=== PATIENT | male | born 1940 | race Caucasian/White ===

== ENCOUNTER 2019-03-09 16:38 | Inpatient (IN) ==
[2019-03-10] MEDS ORDERED: Ondansetron ODT 4 MG TAB.RAPDIS SL PRN (20:14)
[2019-03-10] MEDS ORDERED: Melatonin 3 MG TABLET PO PRN (20:18)
[2019-03-10] MEDS ORDERED: Mag Hydrox/Al Hydrox/Simeth 30 ML UDC PO PRN (20:18)
[2019-03-10] MEDS: Sennosides/Docusate Sodium TABLET PO SCH (21:54)
[2019-03-11 05:23] LABS: Basophils # 0.1 K/mcL (0.0-0.2); Basophils % 1.3 %; Eosinophils # 0.4 K/mcL (0.0-0.6); Eosinophils % 6.2 %; Hematocrit 44.4 % (37.5-50.1); Hemoglobin 14.5 g/dL (12.9-16.9); Immature Granulocytes % 0.4 % (0-4); Lymphocytes # 1.5 K/mcL (0.6-4.6); Lymphocytes % 22.3 %; Mean Corpuscular HGB Conc 32.7 g/dL (31.6-35.5); Mean Corpuscular Volume 91.7 fL (83.0-100.0); Mean Platelet Volume 10.9 fL (9.4-12.4); Monocytes # 0.6 K/mcL (0.0-1.3); Monocytes % 8.6 %; Neutrophils # 4.1 K/mcL (1.6-8.9); Platelet Count 170 K/mcL (140-400); Red Blood Count 4.84 M/mcL (4.19-5.50); Red Cell Distribution Width 12.9 % (11.5-14.5); Segmented Neutrophils % 61.2 %; White Blood Count 6.8 K/mcL (4.3-11.1)
[2019-03-11 05:43] LABS: Alanine Aminotransferase 21 Units/L (7-52); Albumin 3.6 g/dL (3.5-5.7); Albumin/Globulin Ratio 1.6 (1.1-2.2); Alkaline Phosphatase 57 Units/L (34-104); Aspartate Amino Transferase 19 Units/L (13-39); BUN/Creatinine Ratio 13 (6-26); Bilirubin,Total 0.5 mg/dL (0.3-1.0); Blood Urea Nitrogen 17 mg/dL (8-23); Calcium 8.5 mg/dL (8.6-10.3); Carbon Dioxide 30 mEq/L (23-29); Chloride 103 mEq/L (98-107); Globulin 2.3 g/dL (2.4-3.5); Glucose 104 mg/dL (70-105); Magnesium 2.2 mg/dL (1.6-2.6); Osmolality,Calculated 290 (280-300); Potassium 3.8 mEq/L (3.5-5.1); Sodium 139 mEq/L (136-145); Total Protein 5.9 g/dL (6.4-8.9); eGFR For African Americans > 60 (> 60); eGFR For Non-African Americans 52 (> 60)
[2019-03-11] MEDS: Sennosides/Docusate Sodium TABLET PO SCH ×2 (08:59→21:22)
[2019-03-11] MEDS: Aspirin 325 MG TABLET PO SCH (09:12)
[2019-03-11] MEDS: *HR* Enoxaparin 40 MG/0.4 ML SYRINGE SQ SCH (09:13)
[2019-03-12] MEDS: Aspirin 325 MG TABLET PO SCH (08:24)
[2019-03-12] MEDS: *HR* Enoxaparin 40 MG/0.4 ML SYRINGE SQ SCH (08:25)
[2019-03-12] MEDS: Sennosides/Docusate Sodium TABLET PO SCH ×2 (08:25→19:54)
[2019-03-12] MEDS: Fluticasone Propionate Nasal 50 MCG/SPRAY BOTTLE NS SCH (13:36)
[2019-03-13] MEDS: Aspirin 325 MG TABLET PO SCH (08:17)
[2019-03-13] MEDS: *HR* Enoxaparin 40 MG/0.4 ML SYRINGE SQ SCH (08:17)
[2019-03-13] MEDS: Fluticasone Propionate Nasal 50 MCG/SPRAY BOTTLE NS SCH (08:18)
[2019-03-13] MEDS: Sennosides/Docusate Sodium TABLET PO SCH ×2 (08:22→21:00)
[2019-03-14] MEDS: *HR* Enoxaparin 40 MG/0.4 ML SYRINGE SQ SCH (08:02)
[2019-03-14] MEDS: Aspirin 325 MG TABLET PO SCH (08:02)
[2019-03-14] MEDS: Fluticasone Propionate Nasal 50 MCG/SPRAY BOTTLE NS SCH (08:02)
[2019-03-14] MEDS: Sennosides/Docusate Sodium TABLET PO SCH ×2 (08:03→20:29)
[2019-03-14] MEDS: cloNIDine HCl 0.1 MG TABLET PO PRN (09:16)
[2019-03-15] MEDS: Aspirin 325 MG TABLET PO SCH (08:25)
[2019-03-15] MEDS: *HR* Enoxaparin 40 MG/0.4 ML SYRINGE SQ SCH (08:26)
[2019-03-15] MEDS: Fluticasone Propionate Nasal 50 MCG/SPRAY BOTTLE NS SCH (08:26)
[2019-03-15] MEDS: Sennosides/Docusate Sodium TABLET PO SCH ×2 (08:28→20:52)
[2019-03-16] MEDS: Sennosides/Docusate Sodium TABLET PO SCH ×2 (08:19→19:26)
[2019-03-16] MEDS: Fluticasone Propionate Nasal 50 MCG/SPRAY BOTTLE NS SCH (08:25)
[2019-03-16] MEDS: Aspirin 325 MG TABLET PO SCH (08:25)
[2019-03-16] MEDS: *HR* Enoxaparin 40 MG/0.4 ML SYRINGE SQ SCH (08:25)
[2019-03-16] MEDS: amLODIPine 5 MG TABLET PO SCH (11:19)
[2019-03-16] MEDS: cloNIDine HCl 0.1 MG TABLET PO PRN (19:25)
[2019-03-17] MEDS: Aspirin 325 MG TABLET PO SCH (08:21)
[2019-03-17] MEDS: Sennosides/Docusate Sodium TABLET PO SCH ×2 (08:21→21:29)
[2019-03-17] MEDS: amLODIPine 5 MG TABLET PO SCH (08:21)
[2019-03-17] MEDS: *HR* Enoxaparin 40 MG/0.4 ML SYRINGE SQ SCH (08:22)
[2019-03-17] MEDS: Fluticasone Propionate Nasal 50 MCG/SPRAY BOTTLE NS SCH (08:22)
[2019-03-18] MEDS: *HR* Enoxaparin 40 MG/0.4 ML SYRINGE SQ SCH (07:40)
[2019-03-18] MEDS: amLODIPine 5 MG TABLET PO SCH (07:41)
[2019-03-18] MEDS: Aspirin 325 MG TABLET PO SCH (07:41)
[2019-03-18] MEDS: Sennosides/Docusate Sodium TABLET PO SCH ×2 (07:41→20:29)
[2019-03-18] MEDS: Fluticasone Propionate Nasal 50 MCG/SPRAY BOTTLE NS SCH (07:44)
[2019-03-19] MEDS: amLODIPine 5 MG TABLET PO SCH (07:58)
[2019-03-19] MEDS: Aspirin 325 MG TABLET PO SCH (07:58)
[2019-03-19] MEDS: *HR* Enoxaparin 40 MG/0.4 ML SYRINGE SQ SCH (07:59)
[2019-03-19] MEDS: Sennosides/Docusate Sodium TABLET PO SCH ×2 (07:59→20:23)
[2019-03-19] MEDS: Fluticasone Propionate Nasal 50 MCG/SPRAY BOTTLE NS SCH (08:00)
[2019-03-20] MEDS: *HR* Enoxaparin 40 MG/0.4 ML SYRINGE SQ SCH (08:39)
[2019-03-20] MEDS: amLODIPine 5 MG TABLET PO SCH (08:40)
[2019-03-20] MEDS: Fluticasone Propionate Nasal 50 MCG/SPRAY BOTTLE NS SCH (08:40)
[2019-03-20] MEDS: Aspirin 325 MG TABLET PO SCH (08:40)
[2019-03-20] MEDS: Sennosides/Docusate Sodium TABLET PO SCH (08:41)
[2019-03-20 10:00] LABS: Basophils # 0.1 K/mcL (0.0-0.2); Basophils % 1.2 %; Eosinophils # 0.3 K/mcL (0.0-0.6); Eosinophils % 3.9 %; Hematocrit 45.7 % (37.5-50.1); Hemoglobin 15.3 g/dL (12.9-16.9); Immature Granulocytes % 0.2 % (0-4); Lymphocytes # 1.3 K/mcL (0.6-4.6); Lymphocytes % 20.7 %; Mean Corpuscular HGB Conc 33.5 g/dL (31.6-35.5); Mean Corpuscular Hemoglobin 30.1 pg (28.0-33.3); Mean Platelet Volume 10.5 fL (9.4-12.4); Monocytes # 0.5 K/mcL (0.0-1.3); Monocytes % 8.3 %; Neutrophils # 4.3 K/mcL (1.6-8.9); Platelet Count 224 K/mcL (140-400); Red Blood Count 5.08 M/mcL (4.19-5.50); Red Cell Distribution Width 12.9 % (11.5-14.5); Segmented Neutrophils % 65.7 %; White Blood Count 6.5 K/mcL (4.3-11.1)
[2019-03-20 10:14] LABS: Albumin 3.9 g/dL (3.5-5.7); Albumin/Globulin Ratio 1.5 (1.1-2.2); Bilirubin,Total 0.7 mg/dL (0.3-1.0); Calcium 9.1 mg/dL (8.6-10.3); Globulin 2.6 g/dL (2.4-3.5); Potassium 4.1 mEq/L (3.5-5.1); Total Protein 6.5 g/dL (6.4-8.9)
[2019-03-21] MEDS: *HR* Enoxaparin 40 MG/0.4 ML SYRINGE SQ SCH (09:32)
[2019-03-21] MEDS: Fluticasone Propionate Nasal 50 MCG/SPRAY BOTTLE NS SCH (09:32)
[2019-03-21] MEDS: amLODIPine 5 MG TABLET PO SCH (09:32)
[2019-03-21] MEDS: Aspirin 325 MG TABLET PO SCH (09:32)
[2019-03-22] MEDS: amLODIPine 5 MG TABLET PO SCH (10:45)
[2019-03-22] MEDS: Fluticasone Propionate Nasal 50 MCG/SPRAY BOTTLE NS SCH (10:45)
[2019-03-22] MEDS: Aspirin 325 MG TABLET PO SCH (10:45)
[2019-03-22] MEDS: *HR* Enoxaparin 40 MG/0.4 ML SYRINGE SQ SCH (10:45)
[2019-03-23 07:39] VITALS: BP 141/78
[2019-03-23] MEDS: amLODIPine 5 MG TABLET PO SCH (08:11)
[2019-03-23] MEDS: Aspirin 325 MG TABLET PO SCH (08:11)
[2019-03-23] MEDS: Fluticasone Propionate Nasal 50 MCG/SPRAY BOTTLE NS SCH (08:11)
[2019-03-23] MEDS: *HR* Enoxaparin 40 MG/0.4 ML SYRINGE SQ SCH (08:12)
== END 2019-03-23 11:22 | disposition home or self-care (01) | DRG 56 ==
LOC: INPGRE 03-10 19:00